=== PATIENT | male | born 1965 | race Caucasian/White ===

== ENCOUNTER → 2018-04-02 | Outpatient (CLI) | payer OTHER ==
--- NOTE | 2018-04-02 16:59 | Diagnostic Imaging Report ---
EXAMINATION: Right shoulder MRI, 04/02/2018. TECHNIQUE: Multiplanar, multisequence non contrast-enhanced MRI of the right upper extremity was accomplished. INDICATION: Tripped and fell forward. Right arm stretched out and now has pain for the last month. Limited range of motion. No help with physical therapy. FINDINGS: Full-thickness tear of the supraspinatus and infraspinatus tendons noted, which appears to represent a massive tear with retraction measuring at least 3.8 cm. Secondary superior subluxation of the humeral head in relation to the glenoid is noted with loss of the subacromial joint space. There is fluid throughout the subdeltoid-subacromial bursa. Fluid in the glenohumeral joint also noted, likely all post-traumatic. The subscapularis tendon is diffusely thickened and contains diffuse edema. Some of this may be reactive and secondary to the recent trauma. Intrasubstance partial tear not excluded. No full-thickness tear or retraction appreciated. The long head of the biceps tendon does lie within the bicipital groove. However, it contains internal hyperintensity, likely a focus of intrasubstance tearing. No full-thickness tear is appreciated. High signal noted within the proximal biceps tendon likely on the basis of artifact. Biceps tendon anchor is intact. Diffuse heterogeneity noted along the superior labrum. Some of this high signal extends into the mid anterior labrum, suspicious for a tear. Post-arthrogram imaging could better characterize this finding if clinically warranted. There is diffuse edema tracking along the infraspinatus muscle, especially its proximal aspect. There is edema throughout the supraspinatus muscle as well. Teres minor muscle and much of the subscapularis muscle appear preserved. Heterogeneous signal intensity within the subdeltoid-subacromial bursal fluid could represent hemorrhage given the history of trauma. No fracture is appreciated; however, there is narrowing, spurring, and edema at the acromioclavicular joint. Irregularity at the greater tuberosity is noted consistent with chronic changes. Visualized axilla is unremarkable. IMPRESSION: 1. Massive full-thickness tears of the supraspinatus and infraspinatus tendons with retraction as described. 2. Partial tear versus diffuse tendinosis of the subscapularis tendon. 3. Intrasubstance tear of the long head of the biceps tendon. 4. Suspected tear of the superior labrum; see above discussion. Other incidental findings as discussed above. Dictated by: Dictated on workstation # [id number]
== END ==
LOC: RAD 13:45
PROVIDERS: ATTEND Nurse Practitioner
DX: S46.011A Strain of muscle(s) and tendon(s) of the rotator cuff of right shoulder, initial encounter (principal); S46.211A Strain of muscle, fascia and tendon of other parts of biceps, right arm, initial encounter; S43.001A Unspecified subluxation of right shoulder joint, initial encounter; W01.0XXA Fall on same level from slipping, tripping and stumbling without subsequent striking against object, initial encounter
CPT/HCPCS: 73221

== ENCOUNTER → 2022-01-23 | Outpatient (CLI) | payer BC | LOC: CARD 11:00 | PROVIDERS: ATTEND Physician Assistant | DX: E78.2 Mixed hyperlipidemia (principal); I10 Essential (primary) hypertension | CPT/HCPCS: 93306 ==